=== PATIENT | male | born 1985 | race Caucasian/White ===

== ENCOUNTER 2017-06-28 19:16 | Emergency (ER) | payer BC ==
[2017-06-28 19:47] VITALS: BP 126/75; PULSE 76; TEMP 97.7; BMI 28.0
--- NOTE | 2017-06-28 19:49 | PDOC ---
Rapid Medical Evaluation Time Seen by Provider: 06/28/17 19:43 Medical Evaluation: Allergies Allergy/AdvReac Type Severity Reaction Status Date / Time ibuprofen [From Motrin] Allergy Verified 08/08/15 15:01 I have performed a brief in-person evaluation of this patient. The patient presents with a chief complaint of: low back pain x 2 days Pertinent physical exam findings: ttp of lumbar paravertebral muscles I have ordered the following: nothing The patient will proceed to the ED for further evaluation.
[2017-06-28] MEDS ORDERED: KETOROLAC TROMETHAMINE 60 MG/2 ML VIAL IM ONE (20:10)
[2017-06-28] MEDS ORDERED: KETOROLAC TROMETHAMINE 60 MG/2 ML VIAL ONE (20:11)
--- NOTE | 2017-06-28 20:16 | PDOC ---
History of Present Illness - General Chief Complaint: Back Pain Stated Complaint: BACK PAIN Time Seen by Provider: 06/28/17 19:43 History Source: Patient Exam Limitations: No Limitations - History of Present Illness Initial Comments: 06/28/17 20:11 c/o one week low back pain and 2 weeks upper back pain worse with sleeping . no urine or bowel dysfunction no abd pain. pt states he moved heavy couch last week carried down steps pulled back. no abd pain neg urinary or bowel dysfunction. Past History - Past Medical History Allergies/Adverse Reactions: Allergies Allergy/AdvReac Type Severity Reaction Status Date / Time ibuprofen [From Motrin] Allergy Verified 06/28/17 19:48 Home Medications: Ambulatory Orders NK [No Known Home Medication] 06/28/17 COPD: No - Family Disease History Family Disease History: Diabetes: Mother, Heart Disease: Mother - Suicide/Smoking/Psychosocial Hx Smoking History: Current every day smoker Have you smoked in the past 12 months: Yes Number of Cigarettes Smoked Daily: 15 Information on smoking cessation initiated: No 'Breaking Loose' booklet given: 10/02/14 Hx Alcohol Use: No Drug/Substance Use Hx: No Substance Use Type: None Review of Systems - Review of Systems Able to Perform ROS?: Yes Is the patient limited Estonian proficient: No Constitutional: Yes: Symptoms Reported HEENTM: No: Symptoms Reported Respiratory: No: Symptoms reported Cardiac (ROS): No: Symptoms Reported ABD/GI: No: Symptoms Reported : No: Symptoms Reported Musculoskeletal: Yes: Symptoms Reported, Back Pain Integumentary: No: Symptoms Reported Neurological: No: Symptoms reported *Physical Exam - Vital Signs Last Vital Signs Temp Pulse Resp BP Pulse Ox 97.7 F 76 18 126/75 100 06/28/17 19:45 06/28/17 19:45 06/28/17 19:45 06/28/17 19:45 06/28/17 19:45 - Physical Exam General Appearance: Yes: Nourished, Appropriately Dressed HEENT: positive: EOMI, RAMILA Neck: positive: Supple. negative: Tender Respiratory/Chest: positive: Lungs Clear, Normal Breath Sounds Cardiovascular: positive: Regular Rhythm, Regular Rate Gastrointestinal/Abdominal: positive: Normal Bowel Sounds, Soft Lymphatic: negative: Adenopathy Musculoskeletal: positive: Normal Inspection, Other (ttp parapsinal muscles lumbar spine ). negative: CVA Tenderness, CVA Tenderness (R), CVA Tenderness (L ), Muscle Spasm, Vertebral Tenderness Extremity: positive: Normal Capillary Refill, Normal Inspection, Normal Range of Motion, Other (upper back ttp trapezius muscle neg cervical spine tenderness , neg weakness ). negative: Tender Integumentary: positive: Normal Color, Dry, Warm Neurologic: positive: marketing associate II-XII NML intact, Fully Oriented, Alert, Normal Mood/ Affect, Normal Response, Motor Strength 5/5, Finger to Nose. negative: Respond to painful stimul Medical Decision Making - Medical Decision Making 06/28/17 20:15 cc: low back pain upper back pain to the left trapezius muscle will give toradol now neg spinal tenderness FROM neg urine or bowel dysfunction neg abd pain pt ambulating with steady gait pt understnads the dc inst all questions asked and answered. 06/28/17 20:32 *DC/Admit/Observation/Transfer Diagnosis at time of Disposition: Low back pain Qualifiers: Chronicity: acute Back pain laterality: midline Sciatica presence: without sciatica Qualified Code(s): M54.5 - Low back pain - Discharge Dispostion Disposition: HOME Condition at time of disposition: Good - Referrals Referrals: Malik Vaughn MD [Staff Physician] - - Patient Instructions Additional Instructions: apply warm compresses to the lower back and to the upper back take the muscle relaxant for spasm as directed do not drive or drink alcohol while you take the medications - Post Discharge Activity
== END 2017-06-28 20:35 | disposition home or self-care (01) ==
LOC: JERFT 19:16
PROC: 3E0233Z Introduction of Anti-inflammatory into Muscle, Percutaneous Approach (ICD-10-PCS; principal; 2017-06-28)
DX: M54.5 Low back pain (principal); M62.830 Muscle spasm of back
CPT/HCPCS: 99281-25

== ENCOUNTER 2022-02-06 21:21 | Emergency (ER) | payer SELFPAY ==
[2022-02-06 21:45] VITALS: BP 129/80; PULSE 99; RESP 18; TEMP 98.8; BMI 28.0
[2022-02-06] MEDS ORDERED: PENICILLIN G BENZATHINE 2,400,000 UNIT/4 ML PFS IM ONE (22:43)
[2022-02-06] MEDS ORDERED: PENICILLIN G BENZATHINE 1,200,000 UNIT/2 ML PFS IM ONE (22:57)
[2022-02-06 23:42] LABS: BASO % 0.4 % (0-2.0); EOS % 2.1 % (0-4.5); HEMOGLOBIN 15.9 GM/dL (11.7-16.9); LYMPH % 25.7 % (8-40); MCHC 33.9 g/dl (32.0-35.9); MEAN CELL VOLUME 82.5 fl (80-96); MEAN PLT VOLUME 8.7 fl (7.5-11.1); MONO % 15.2 % (3.8-10.2); NEUT % 56.6 % (42.8-82.8); PLATELET COUNT 186 10^3/uL (134-434); RBC 5.69 M/mm3 (4.00-5.60); RDW 13.6 % (11.9-15.9); WHITE BLOOD COUNT 5.2 K/mm3 (4.0-10.0)
[2022-02-07 00:04] LABS: ALBUMIN 3.8 g/dl (3.4-5.0); BLOOD UREA NITROGEN 13.9 mg/dL (7-18)
[2022-02-07 00:07] LABS: CREATININE 1.1 mg/dL (0.55-1.3)
[2022-02-07 00:08] LABS: TOT PROT 7.6 g/dl (6.4-8.2)
[2022-02-07 00:09] LABS: BILIRUBIN,TOTAL 0.6 mg/dL (0.2-1)
[2022-02-07 05:56] LABS: HIV INTERPRETATION PRESUMPTIVE POSITIVE (NEGATIVE); SYPHILIS W/ RPR CONF REACTIVE (NONREACTIVE)
== END 2022-02-07 05:55 | disposition home or self-care (01) ==
LOC: JERFT 21:21
DX: A51.0 Primary genital syphilis (principal)
CPT/HCPCS: 36415; 80053; 85025; 86593; 86705; 86780; 86803; 87350; 87389; 87517; 99284-25